=== PATIENT | female | born 1940 | race Caucasian/White ===

== ENCOUNTER 2021-03-20 13:35 | Outpatient (CLI) | payer MEDICARE | END 2021-03-20 13:36 | disposition home or self-care (01) | LOC: CSHULT 13:35 → EDSEX 14:15 | PROVIDERS: ATTEND Family Medicine | DX: R09.89 Other specified symptoms and signs involving the circulatory and respiratory systems (principal); I65.22 Occlusion and stenosis of left carotid artery; I65.29 Occlusion and stenosis of unspecified carotid artery | CPT/HCPCS: 93880 ==

== ENCOUNTER 2023-02-26 18:06 | Inpatient (IN) | payer MEDICARE ==
[2023-02-26 18:50] LABS: #Monocytes 0.5 10x3/uL (0.0-1.1); #Neutrophils 5.2 10x3/uL (1.5-8.4); %Basophils 0.4 % (0.0-2.0); %Eosinophils 0.4 % (0.0-6.0); %Lymphocytes 20.8 % (18.0-47.0); %Monocytes 6.9 % (0.0-10.0); %Neutrophils 71.2 % (40.0-75.0); Hematocrit 40.5 % (34.9-44.5); Hemoglobin 13.8 g/dL (12.0-15.5); Mean Corpuscular HGB CONC 34.1 g/dL (32.0-36.0); Mean Corpuscular Hemoglobin 32.1 pg (27.0-33.0); Mean Corpuscular Volume 94.2 fl (81.6-98.3); Mean Platelet Volume 9.8 fl (7.4-10.4); Platelet Count 351 10x3/uL (150-450); RBC Distribution Width 13.2 % (11.5-14.5); White Blood Cell (WBC) Count 7.3 10x3/uL (3.5-10.5)
[2023-02-26] MEDS ORDERED: Amlodipine 5 MG TAB ONE (18:59)
[2023-02-26] MEDS ORDERED: Aspirin Chewable 81 MG TAB ONE (18:59)
[2023-02-26] MEDS ORDERED: hydrALAZINE 25 MG TAB ONE (18:59)
[2023-02-26 19:04] LABS: ALT (SGPT) 14 U/L (8-55); AST (SGOT) 25 U/L (5-34); Albumin 4.2 g/dL (3.4-4.8); Alkaline Phosphatase 55 U/L (40-110); Anion Gap 15 mmol/L (10-20); BUN (Urea Nitrogen) 11 mg/dL (9.8-20.1); Bilirubin, Total 0.7 mg/dL (0.2-1.2); Calc. Creatinine Clearance 0 mL/min (70-130); Calcium 9.3 mg/dL (7.8-10.44); Carbon Dioxide 21 mmol/L (23-31); Chloride 102 mmol/L (98-107); Estimated GFR 87; Glucose 101 mg/dL (83-110); Potassium 4.3 mmol/L (3.5-5.1); Protein, Total 7.2 g/dL (5.8-8.1); Sodium 134 mmol/L (136-145)
[2023-02-26 19:07] LABS: Troponin I Less than 0.010 ng/mL (< 0.028)
[2023-02-26] MEDS ORDERED: Lidocaine 2% Viscous Solution 10 ML, Aluminum & Magnesium Hydroxide 30 ML SSW SCH (20:00)
[2023-02-26] MEDS ORDERED: Guaifenesin DM 100-10/5 ML UDCUP PO PRN (20:13)
[2023-02-26] MEDS ORDERED: Calcium Carbonate 500 MG ChewTAB PO PRN (20:13)
[2023-02-26] MEDS ORDERED: Ondansetron PF 4 MG/2 ML Vial IVP PRN (20:13)
[2023-02-26] MEDS ORDERED: HYDROcodone/Acetaminophen 5/325 mg Tablet PO PRN (20:13)
[2023-02-26] MEDS ORDERED: Acetaminophen 325 MG TAB PO PRN (20:13)
[2023-02-26] MEDS ORDERED: Nitroglycerin 0.4 MG TAB (25 Tab Bottle) SL PRN (20:21)
[2023-02-26 23:08] LABS: Troponin I 0.016 ng/mL (< 0.028)
[2023-02-26] MEDS: Metoprolol Tartrate 25 MG TAB PO SCH (23:37)
[2023-02-26] MEDS: Famotidine 20 MG TAB PO SCH (23:37)
[2023-02-26] MEDS: Zolpidem Tartrate 5 MG TAB PO PRN (23:57)
[2023-02-27] MEDS ORDERED: Melatonin 3 MG TAB PO PRN (00:14)
[2023-02-27 02:44] VITALS: BMI 24.4
[2023-02-27] MEDS: Levothyroxine Sodium 50 MCG TAB PO SCH (06:16)
[2023-02-27 08:22] LABS: Bilirubin Neg (Negative); Blood, Urine Negative (Negative); Glucose, Urine (Dipstick) Normal (Negative); Ketone, Urine Negative (Negative); Leukocyte Negative (Negative); Nitrite Negative (Negative); Protein, Urine (Dipstick) 15 mg/dl (Neg-Trace); Urobilinogen Normal mg/dL (Less than 2); pH, Urine 6.5 (5.0-9.0)
[2023-02-27 08:26] LABS: Clarity Clear (Clear)
[2023-02-27 08:29] LABS: Bacteria/HPF None Seen HPF (None Seen); RBC/HPF None Seen HPF (0-3); Squamous Epithelial None Seen HPF (0-3); WBC/HPF 0-3 HPF (0-3)
[2023-02-27] MEDS: hydrALAZINE 25 MG TAB PO SCH ×3 (09:00→20:14)
[2023-02-27] MEDS: Metoprolol Tartrate 25 MG TAB PO SCH (09:00)
[2023-02-27] MEDS: Amlodipine 5 MG TAB PO SCH ×2 (09:15→20:15)
[2023-02-27] MEDS: Famotidine 20 MG TAB PO SCH ×2 (09:16→21:32)
[2023-02-27] MEDS: Aspirin 81 mg Enteric Coated Tablet PO SCH (09:16)
[2023-02-27] MEDS: Lisinopril 20 MG TAB PO SCH (09:16)
[2023-02-27] MEDS ORDERED: Communication Order-Pharmacy FS SCH (09:45)
[2023-02-27] MEDS ORDERED: Carvedilol 6.25 MG TAB PO SCH (10:00)
[2023-02-27] MEDS: Carvedilol 6.25 MG TAB PO SCH (17:46)
[2023-02-27] MEDS: Zolpidem Tartrate 5 MG TAB PO PRN (21:32)
[2023-02-27] MEDS ORDERED: Nitroglycerin 0.4 MG TAB (25 Tab Bottle) ONE (21:43)
[2023-02-28 05:33] LABS: #Eosinphils 0.1 10x3/uL (0.0-0.5); #Monocytes 0.5 10x3/uL (0.0-1.1); #Neutrophils 3.6 10x3/uL (1.5-8.4); %Basophils 0.5 % (0.0-2.0); %Eosinophils 1.5 % (0.0-6.0); %Lymphocytes 29.8 % (18.0-47.0); %Monocytes 8.9 % (0.0-10.0); %Neutrophils 59.1 % (40.0-75.0); Hematocrit 35.8 % (34.9-44.5); Hemoglobin 12.2 g/dL (12.0-15.5); Mean Corpuscular HGB CONC 34.1 g/dL (32.0-36.0); Mean Corpuscular Hemoglobin 32.4 pg (27.0-33.0); Mean Corpuscular Volume 95.2 fl (81.6-98.3); Mean Platelet Volume 9.5 fl (7.4-10.4); Platelet Count 286 10x3/uL (150-450); RBC Distribution Width 13.1 % (11.5-14.5); Red Blood Cell (RBC) Count 3.76 10x6/uL (3.90-5.03); White Blood Cell (WBC) Count 6.1 10x3/uL (3.5-10.5)
[2023-02-28 05:44] LABS: INR-International Normal Ratio 1.1; PTT 36.1 sec (22.0-33.0); Prothrombin Time 11.6 sec (9.5-12.1)
[2023-02-28 05:48] LABS: ALT (SGPT) 10 U/L (8-55); AST (SGOT) 15 U/L (5-34); Albumin 3.6 g/dL (3.4-4.8); Alkaline Phosphatase 48 U/L (40-110); Anion Gap 12 mmol/L (10-20); BUN (Urea Nitrogen) 10 mg/dL (9.8-20.1); Calc. Creatinine Clearance 61 mL/min (70-130); Calcium 8.8 mg/dL (7.8-10.44); Carbon Dioxide 23 mmol/L (23-31); Chloride 106 mmol/L (98-107); Estimated GFR 86; Globulin 2.6 g/dL (2.4-3.5); Glucose 94 mg/dL (83-110); Potassium 4.1 mmol/L (3.5-5.1); Protein, Total 6.2 g/dL (5.8-8.1); Sodium 137 mmol/L (136-145)
[2023-02-28 05:52] LABS: Troponin I Less than 0.010 ng/mL (< 0.028)
[2023-02-28] MEDS ORDERED: Nitroglycerin 50 MG/250 ML BOT 250 ML ONE (06:54)
[2023-02-28] MEDS ORDERED: fentaNYL 50 mcg/mL 1 mL Vial ONE (06:55)
[2023-02-28] MEDS ORDERED: Adenosine 6 MG/2 ML VIAL ONE (06:55)
[2023-02-28] MEDS ORDERED: Atropine Sulfate 1 mg/1 ml Vial ONE (06:55)
[2023-02-28] MEDS ORDERED: Heparin 10,000 UNITS/ 10 ML VIAL ONE (06:55)
[2023-02-28] MEDS ORDERED: Verapamil 5 MG/2 ML VIAL ONE (06:55)
[2023-02-28] MEDS ORDERED: Lidocaine 1% (PF) 30 ML VIAL ONE (06:55)
[2023-02-28] MEDS ORDERED: Midazolam HCl 2 mg/2 ml Vial ONE (06:56)
[2023-02-28] MEDS ORDERED: Acetaminophen/Codeine 30-300mg Tablet PO PRN ×2 (08:15)
[2023-02-28] MEDS ORDERED: Sodium Chloride 0.9% 200 ML IV PRN (08:15)
[2023-02-28] MEDS ORDERED: Nitroglycerin 0.4 MG TAB (25 Tab Bottle) SL PRN (08:15)
[2023-02-28] MEDS: Aspirin 81 mg Enteric Coated Tablet PO SCH (11:45)
[2023-02-28] MEDS: Amlodipine 5 MG TAB PO SCH ×2 (11:47→21:00)
[2023-02-28] MEDS: hydrALAZINE 25 MG TAB PO SCH ×2 (11:48→21:00)
[2023-02-28] MEDS: Lisinopril 20 MG TAB PO SCH (11:48)
[2023-02-28] MEDS: Famotidine 20 MG TAB PO SCH ×2 (11:48→20:30)
[2023-02-28] MEDS ORDERED: Iopamidol 300 61% 100 ML VIAL FS ONE (12:00)
[2023-02-28] MEDS: Carvedilol 6.25 MG TAB PO SCH ×2 (12:00→17:59)
[2023-02-28] MEDS: Zolpidem Tartrate 5 MG TAB PO PRN (20:30)
[2023-02-28] MEDS: Levothyroxine Sodium 50 MCG TAB PO SCH (21:41)
[2023-03-01] MEDS: Levothyroxine Sodium 50 MCG TAB PO SCH (05:41)
[2023-03-01] MEDS: Famotidine 20 MG TAB PO SCH (08:49)
[2023-03-01] MEDS: hydrALAZINE 25 MG TAB PO SCH (08:50)
[2023-03-01] MEDS: Carvedilol 6.25 MG TAB PO SCH (08:51)
[2023-03-01] MEDS: Lisinopril 20 MG TAB PO SCH (08:51)
[2023-03-01] MEDS: Amlodipine 5 MG TAB PO SCH (08:51)
[2023-03-01] MEDS: Aspirin 81 mg Enteric Coated Tablet PO SCH (08:51)
[2023-03-01 12:22] VITALS: TEMP 97.6
[2023-03-01 12:59] VITALS: BP 148/67
[2023-03-01] MEDS ORDERED: Carvedilol 6.25 MG TAB PO SCH (17:00)
== END 2023-03-01 16:00 | disposition home or self-care (01) | DRG 206 ==
LOC: CSHERS 18:06 → CSHTELE 20:01 → OBSVTOIN 02-27 13:38
PROVIDERS: ADMIT Student in an Organized Health Care Education/Training Program; ATTEND Nurse Practitioner Family
PROC: 4A023N7 Measurement of Cardiac Sampling and Pressure, Left Heart, Percutaneous Approach (ICD-10-PCS; principal; 2023-02-28)
PROC: B2111ZZ Fluoroscopy of Multiple Coronary Arteries using Low Osmolar Contrast (ICD-10-PCS; 2023-02-28)
PROC: B2151ZZ Fluoroscopy of Left Heart using Low Osmolar Contrast (ICD-10-PCS; 2023-02-28)
DX: M94.0 Chondrocostal junction syndrome [Tietze] (principal); I25.10 Atherosclerotic heart disease of native coronary artery without angina pectoris; I10 Essential (primary) hypertension; K21.9 Gastro-esophageal reflux disease without esophagitis; I16.0 Hypertensive urgency; E03.9 Hypothyroidism, unspecified; E78.5 Hyperlipidemia, unspecified; Z90.49 Acquired absence of other specified parts of digestive tract; Z90.89 Acquired absence of other organs; Z95.5 Presence of coronary angioplasty implant and graft; Z98.890 Other specified postprocedural states; Z79.899 Other long term (current) drug therapy; Z79.82 Long term (current) use of aspirin; Z79.890 Hormone replacement therapy; Z82.49 Family history of ischemic heart disease and other diseases of the circulatory system
CPT/HCPCS: 36415; 71045; 75710; 80053; 81001; 83880; 84443; 84484; 85025; 85379; 85610; 85730; 93005; 93306; 93458; 96372; 99152; 99153; C1769; C1894; G0378; J0153; J0461; J1644; J1650; J2001; J2250; J2405; J3010; Q9967

== ENCOUNTER 2024-05-18 10:39 | Emergency (ER) | payer MEDICARE ==
[~2024-05-18 10:39] MED LIST: Iopamidol 300 61% 100 ML VIAL FS ONE
[2024-05-18] MEDS ORDERED: Ondansetron PF 4 MG/2 ML Vial ONE (11:19)
[2024-05-18 11:36] LABS: #Basophils Less than 0.03 10x3/uL (0.0-0.2); #Eosinophils 0.05 10x3/uL (0.0-0.5); #Monocytes 0.47 10x3/uL (0.0-1.1); #Neutrophils 5.73 10x3/uL (1.5-8.4); %Basophils 0.1 % (0.0-2.0); %Eosinophils 0.7 % (0.0-6.0); %Monocytes 6.7 % (0.0-10.0); %Neutrophils 81.2 % (40.0-75.0); Hematocrit 36.7 % (34.9-44.5); Hemoglobin 12.6 g/dL (12.0-15.5); Mean Corpuscular HGB CONC 34.3 g/dL (32.0-36.0); Mean Corpuscular Hemoglobin 31.7 pg (27.0-33.0); Mean Corpuscular Volume 92.2 fL (81.6-98.3); Mean Platelet Volume 9.5 fL (7.4-10.4); Platelet Count 297 10x3/uL (150-450); RBC Distribution Width 12.6 % (11.5-14.5); Red Blood Cell (RBC) Count 3.98 10x6/uL (3.90-5.03); White Blood Cell (WBC) Count 7.06 10x3/uL (3.5-10.5)
[2024-05-18 11:56] LABS: ALT (SGPT) 17 U/L (Less than 34); AST (SGOT) 26 U/L (11-34); Albumin 3.6 g/dL (3.1-4.5); Alkaline Phosphatase 41 U/L (40-110); Anion Gap 14 mmol/L (10-20); BUN (Urea Nitrogen) 11 mg/dL (9.8-20.1); Bilirubin, Total 0.6 mg/dL (0.3-1.2); Calc. Creatinine Clearance 0 mL/min (70-130); Calcium 8.7 mg/dL (7.8-10.44); Carbon Dioxide 19 mmol/L (23-31); Chloride 97 mmol/L (98-107); Estimated GFR 81; Globulin 2.9 g/dL (2.4-3.5); Glucose 110 mg/dL (83-110); Lipase 32 U/L (8-78); Potassium 4.8 mmol/L (3.5-5.1); Protein, Total 6.5 g/dL (5.8-8.1); Sodium 125 mmol/L (136-145)
[2024-05-18 11:59] LABS: Troponin I Less than 0.010 ng/mL (< 0.028)
[2024-05-18 12:05] LABS: Bilirubin Neg (Negative); Blood, Urine Negative (Negative); Clarity Clear (Clear); Glucose, Urine (Dipstick) Normal (Negative); Ketone, Urine Negative (Negative); Leukocyte Negative (Negative); Nitrite Negative (Negative); Protein, Urine (Dipstick) Negative (Neg-Trace); Urobilinogen Normal mg/dL (Less than 2)
[2024-05-18 12:45] LABS: Bacteria/HPF Rare-Few HPF (None Seen); CAUTI Indications for Culture Alt mental st,lethar; RBC/HPF 0-3 HPF (0-3); Squamous Epithelial 0-3 HPF (0-3); WBC/HPF None Seen HPF (0-3)
[2024-05-18 12:47] LABS: Urine Culture Reflex No No
== END 2024-05-18 13:50 | disposition home or self-care (01) ==
LOC: CSHERS 10:39
DX: R10.9 Unspecified abdominal pain (principal); E87.1 Hypo-osmolality and hyponatremia; I11.0 Hypertensive heart disease with heart failure; I50.9 Heart failure, unspecified
CPT/HCPCS: 71045; 74177; 80053; 81001; 83690; 84484; 85025; 93005; J2405; Q9967; 96374